=== PATIENT | male | born 1940 | race Caucasian/White ===

== ENCOUNTER 2018-08-11 10:23 | Day surgery (SDC) | payer MEDICARE, BC ==
[~2018-08-11 10:23] MED LIST: CHOL10002 PO; Cipro500 MG PO; Doxazosin Mesyla4 MG PO; GABA100 PO; IRBE150 PO; IRBE75 PO; Micro-K10 MEQ PO; OMEP20ER PO; TAMS.4ER PO; Triamterene W/1 EACH PO
== END 2018-08-11 22:43 | disposition home or self-care (01) ==
LOC: WOUND 10:23
DX: Z48.00 Encounter for change or removal of nonsurgical wound dressing (principal); S61.011A Laceration without foreign body of right thumb without damage to nail, initial encounter; I10 Essential (primary) hypertension
CPT/HCPCS: G0463

== ENCOUNTER 2018-08-18 07:55 | Day surgery (SDC) | payer MEDICARE, BC | END 2018-08-18 08:45 | disposition home or self-care (01) | LOC: WOUND 07:55 | DX: S61.011A Laceration without foreign body of right thumb without damage to nail, initial encounter (principal) | CPT/HCPCS: G0463 ==